=== PATIENT | female | born 1940 ===

== ENCOUNTER → 2017-12-14 19:06 | Outpatient (REF) | payer OTHER, SELFPAY | LOC: LAB 19:06 | PROVIDERS: Visit Provider Dermatology MOHS-Micrographic Surgery | DX: Z48.817 Encounter for surgical aftercare following surgery on the skin and subcutaneous tissue (principal); Z48.02 Encounter for removal of sutures; D04.71 Carcinoma in situ of skin of right lower limb, including hip | CPT/HCPCS: 87070; 87075; 87077; 87186; 87205 ==

== ENCOUNTER → 2017-12-25 18:28 | Outpatient (REF) | payer OTHER, SELFPAY | LOC: LAB 18:28 | PROVIDERS: Visit Provider Dermatology MOHS-Micrographic Surgery | DX: Z48.817 Encounter for surgical aftercare following surgery on the skin and subcutaneous tissue (principal) | CPT/HCPCS: 87070; 87075; 87205 ==